=== PATIENT | female | born 1985 | race Caucasian/White ===

== ENCOUNTER → 2019-04-06 12:37 | Outpatient (BNVA) | payer OTHER, SELFPAY | PROVIDERS: Visit Provider Family Medicine | DX: J11.1 Influenza due to unidentified influenza virus with other respiratory manifestations (principal); Z20.828 Contact with and (suspected) exposure to other viral communicable diseases | CPT/HCPCS: 87804 ==

== ENCOUNTER → 2019-12-07 10:16 | Outpatient (BNVA) | payer OTHER, SELFPAY | PROVIDERS: Visit Provider Obstetrics & Gynecology | DX: O26.899 Other specified pregnancy related conditions, unspecified trimester; Z67.91 Unspecified blood type, Rh negative | CPT/HCPCS: 80307; 82950; 84315; 85025; 86803; 86850 ==

== ENCOUNTER → 2019-12-12 08:55 | Outpatient (BNVA) | payer OTHER, SELFPAY | PROVIDERS: Visit Provider Obstetrics & Gynecology | DX: R73.09 Other abnormal glucose (principal) | CPT/HCPCS: 82951; 82952 ==

== ENCOUNTER → 2020-01-31 10:01 | Outpatient (BNVA) | payer OTHER, SELFPAY | PROVIDERS: Visit Provider Obstetrics & Gynecology | DX: Z34.90 Encounter for supervision of normal pregnancy, unspecified, unspecified trimester (principal) | CPT/HCPCS: 84315; 87081 ==

== ENCOUNTER → 2020-02-21 08:57 | Outpatient (BNVA) | payer OTHER, SELFPAY | PROVIDERS: Visit Provider Obstetrics & Gynecology | DX: O26.899 Other specified pregnancy related conditions, unspecified trimester (principal); Z67.91 Unspecified blood type, Rh negative | CPT/HCPCS: 84315; 87635 ==

== ENCOUNTER 2020-03-04 11:30 | Inpatient (IN) | payer OTHER, SELFPAY ==
[2020-03-04] VITALS (58 sets, daily range): BP systolic 0–160; BP diastolic 0–103; PULSE 65–112; RESP 16; TEMP 36.8–37; O2SAT 97–99
--- NOTE | 2020-03-04 11:30 | ANES.PREANE2 ---
Pre-Anesthetic Assessment Pre-Anesthetic Assessment: Height/Weight: Height 1.6 m Pulse BP 82 129/78 03/04/20 11:17 03/04/20 11:17 Preop Diagnosis: IUP Proposed Procedure: labor epidural Familial anesthetic complications: denies Was Beta Kel taken within 24 hours: N/A Social: Social History: Tobacco (smokes 2 cigs per day) Exam: Pre-Anes Outpt Exam: alert, oriented x 3 and clear to auscultation bilaterally Airway: Submandibular: WNL Cervical ROM: WNL MP: 2 Pulmonary: Pulmonary: None reported CV/HEM: CV/HEM: None reported : : None reported Hepatic: Hepatic: None reported GI: GI: GERD Metabolic: Metabolic: None reported Musc/skel: Musc/skel: None reported Neuropsych: Neuropsych: None reported Anesthetic Plan: Anesthesia: Anesthesia Evaluation and Regional (specify below) PFSH Anesthesia PFSH: Medical History No pertinent past medical history Denies diabetes, asthma, hypertension, seizures, DVT/PE PCP: Primary care at the [facility] Surgical History No pertinent past surgical history Family History Grandmother Heart disease paternal Hyperlipidemia paternal Hypertension paternal Stroke paternal Thyroid condition paternal Father Hyperlipidemia Hypertension Denies family history of Colon cancer Ovarian cancer Diabetes Breast cancer Uterine cancer Social History Smoking and tobacco status: current every day smoker Alcohol intake: current Additional social history: - Tobacco use: Quit in 2018 Alcohol use: Socially prior to Drug use: Never Data Anesthesia Cardiac Studies: No Data to Display
[2020-03-04 12:00] LABS: Basophils % 0.1 %; Eosinophils % 0.2 %; Hematocrit 40.2 % (37.0-47.0); Hemoglobin 13.6 g/dL (11.5-15.3); Lymphocytes # 0.9 10^3/uL (0.8-4.8); Lymphocytes % 5.6 %; Mean Corpuscular HGB Conc 33.8 g/dL (30.0-36.0); Mean Corpuscular Hemoglobin 31.9 pg (28.0-34.0); Mean Corpuscular Volume 94.1 fL (81-99); Mean Platelet Volume 11.5 fL (7.4-10.4); Monocytes # 0.4 10^3/uL (0.2-0.9); Monocytes % 2.8 %; Neutrophils # 13.84 10^3/uL (1.8-7.7); Neutrophils % 90.8 %; Nucleated Red Blood Cells % 0 %; Platelet Count 252 10^3/cmm (130-400); Red Blood Count 4.27 10^6/uL (4.1-5.3); Red Cell Distribution Width 12.8 % (12.1-15.1); White Blood Count 15.2 10^3/uL (4.0-10.0)
[2020-03-04] MEDS: lactated ringers 1,000 ML 999 ML IV ×2 (12:00→13:00)
--- NOTE | 2020-03-04 13:15 | ANES.PROC ---
Anesthesia Procedures Procedure/Date: 03/04/20 Epidural: Time Out Performed: Yes Consents Signed: Procedure Consent Consent: requested by attending/covering physician Lumbar Level: L3-L4 Epidural position: sitting Epidural procedure: sterile prep of area, 1% lidocaine to numb the area (3 cc), 18 g needle (L3-L4 interspace ), neg for paresthesia, test dose given ( 3 cc), 0.2% Ropivacaine bolus ml (8 cc ), placed PCEA, no systemic response, sterile dressing applied, L.U.D. no apparent complications and 0.2% Ropiavacaine @ mls/hr (12 mls/hr 5 c bolus Q 10 min ) Additional Comments: MARIELY at 8 cm at the skin, catheter threaded to 14 cm. Patient states she is having decreased pain with contractions. VSS see OBYX system.
[2020-03-04] MEDS: oxytocin 30 UNIT/500 ML BAG IV (15:15)
[2020-03-04] MEDS: hyDROXYzine 25 mg Capsule 50 MG PO (17:33)
[2020-03-04] MEDS: dextrose 5%-lactated ringers 1,000 ML 125 ML IV (19:05)
[2020-03-04] MEDS: ondansetron 2 mg/ML SDV 2 mL 4 MG IVP (20:14)
--- NOTE | 2020-03-04 21:05 | P.PCNOB_ITS ---
Delivery Note: Date of delivery: March 04, 2020 Pre-delivery diagnoses: term Post-delivery diagnoses: term delivered Procedure: spontaneous vaginal delivery Op report anesthesia: Epidural Delivering Physician: Juan Luis Hendricks M.D. Estimated blood loss (mL): 500 Findings: male , Apgars 8 and 9, weight Pre-Delivery Course: Ms. Solorzano is a 34 year old, 2, Para 1-0-0-1, with an LMP of 05/24/2019 and an EDC of 02/28/2020 based on LMP and consistent with 11- week ultrasound, which places her at 40 5/7 weeks gestation who has been re ceiving care from [facility]. She has been experiencing painful uterine contractions for the past 4 hours. The contractions are occurring at 4 minute intervals with approximately 30 second duration. She continues to feel movement between the contractions. She denies vaginal bleeding or rupture of membranes. CC: Onset of labor at term. HPI: Received appropriate care. Daily vitamins since started care. labs have all been normal, including negative for HIV. She was found to be negative for Group B Strep from screening at 36 weeks. She has gained approximately 27 lbs throughout the . She denies a history of HTN during . Glucose tolerance screening for gestational diabetes was negative. Delivery: The patient was noted to be complete and pushing, so was placed in the dorsal lithotomy position, prepped and draped in the usual sterile fashion for a vaginal delivery. Pt. Noted to have epidural anesthesia. At 2053 the patient delivered a viable at 40+5 weeks a male weighing 3325 g with scores of 8 and 9 at one and five minutes, respectively. The vertex was delivered spontaneously over intact perineum. The patient was asked to push and the head delivered spontaneously in the MARQUIS position, over an intact perineum. A nuchal cord was checked and none noted. The anterior shoulder delivered easily and the posterior shoulder followed. The remainder of the was easily delivered and the oropharynx and nasopharynx was bulb suctioned. The infant was noted to have spontaneous cry and spontaneous movement of all four extremities. The cord was clamped x 2 and cut and noted to have 2 arteries and one vein. The infant was passed to the mother's abdomen where nursing personnel were in attendance. Cord blood was then obtained. The placenta delivered intact spontaneously and the uterus was explored. 20 units of Pitocin was placed in the IV bag to firm the uterus. Examination of the cervix and vaginal vault did not reveal any lacerations. A vaginal pack was then placed. Examination of the perineum showed no lacerations. The vaginal pack was then removed. The patient tolerated this procedure well, and recovered in L&D with her infant to the OB freier. All sponge and needle counts were correct. Post-Delivery Status: good and stable A&P Assessment and plan (1) Rh negative status during : Status: Acute Qualifiers: Trimester: third trimester Qualified Code(s): O26.893 - Other specified related conditions, third trimester; Z67.91 - Unspecified blood type, Rh negative (2) Term delivered: Status: Acute Coding Level of Care Code Acute Technical Delivery Manager for [facility] Manuela Medical Decision Making Moderate Complexity Diagnoses Rh negative status during O26.893; Z67.91 Trimester: third trimester Term delivered O80 Time Spent (min) 120
[2020-03-04] MEDS: HYDROcodone-acetaminophen 5-325 mg Tablet PO (23:09)
[2020-03-05] VITALS (10 sets, daily range): BP systolic 107–120; BP diastolic 61–74; PULSE 71–93; RESP 16–18; TEMP 36.6–36.9; O2SAT 96–98
[2020-03-05] MEDS: HYDROcodone-acetaminophen 5-325 mg Tablet PO ×3 (07:42→20:10)
[2020-03-05] MEDS: docusate sodium 100 mg Capsule PO (09:19)
[2020-03-05] MEDS: ibuprofen 800 mg tablet PO ×3 (09:19→22:00)
[2020-03-05] MEDS: prenatal vitamin Capsule 1 CAP PO (09:19)
[2020-03-05 11:25] LABS: Hematocrit 35.7 % (37.0-47.0); Hemoglobin 11.9 g/dL (11.5-15.3); Mean Corpuscular HGB Conc 33.3 g/dL (30.0-36.0); Mean Corpuscular Hemoglobin 32.2 pg (28.0-34.0); Mean Corpuscular Volume 96.5 fL (81-99); Mean Platelet Volume 11.8 fL (7.4-10.4); Platelet Count 219 10^3/cmm (130-400); Red Cell Distribution Width 12.9 % (12.1-15.1); White Blood Count 17.5 10^3/uL (4.0-10.0)
--- NOTE | 2020-03-05 13:39 | PC.RESP ---
Smoking Cessation information sent to patient.
--- NOTE | 2020-03-05 16:19 | P.DS_ITS ---
Discharge Providers FREIGHT SEPARATOR Date of Admission: 03/04/20 11:30 Date of Discharge: 03/05/20 Attending Provider at Admission: Juan Luis Hendricks MD Attending Provider at Discharge: Juan Luis Hendricks MD Diagnoses at Discharge Discharge Diagnosis (1) Rh negative status during : Status: Acute Qualifiers: Trimester: third trimester Qualified Code(s): O26.893 - Other specified related conditions, third trimester; Z67.91 - Unspecified blood type, Rh negative (2) Term delivered: Status: Acute Reason for Visit Reason for Visit: contractions Hospital Course Hospital Course Ms. Solorzano is a 34 year old, 2, Para 1-0-0-1, with an LMP of 05/24/2019 and an EDC of 02/28/2020 based on LMP and consistent with 11-week ultrasound, which places her at 40 5/7 weeks gestation who has been receiving care from [facility]. Came to labor and delivery for contractions. She was admitted in active labor. She progressed to have a spontaneous vaginal delivery without complication of a term male infant at 40+5 weeks, weighing 3325 g with scores of 8 and 9 at one and five minutes, respectively. observation was uneventful. Tolerating diet well. Ambulating without difficulty. She is afebrile and hemodynamically stable Information Peripartum Data: Infant Delivery Method: Vaginal Physical Exam Narrative: EXAM NARRATIVE: GA; alert and oriented x 3 HEENT: normal Breasts: engorged Nipples - skin intact Lungs; clear to auscultation Heart: regular rhythm, no murmurs. Abd: Appropriately tender. BS+. Uterine fundus below umbilicus. No Fundal Tenderness. Perineum: normal lochia. Extremities: no edema, no cyanosis, no tenderness. Urinary Catheter Management^: Rabago: Cath Placed During This Visit: yes, but has since been removed by the nurse Reason for Continuing Indwelling Catheter: Decision to DC Catheter Urinary Catheter Date of Insertion: 03/04/20 Urinary Catheter Time of Insertion: 13:30 Date Urinary Catheter Removed: 03/04/20 Time Urinary Catheter Discontinued: 19:30 Discharge Data Data Completed and Pending: Labs from last 24 hours 03/05/20 03/05/20 03/04/20 10:30 10:30 11:35 WBC 17.5 H RBC 3.70 L Hgb 11.9 Hct 35.7 L MCV 96.5 MCH 32.2 MCHC 33.3 RDW 12.9 Plt Count 219 MPV 11.8 H Blood Type O Negative Rho(D) Type Negative Antibody Screen Positive Antibody Identific ation Anti-D Screen Negative Vitals: Last Vital Signs Temp 98.2 F 03/05/20 15:16 Pulse 76 03/05/20 15:16 Resp 17 03/05/20 15:16 BP 112/63 03/05/20 15:16 Pulse Ox 98 03/05/20 06:55 Discharge Plan Discharge Patient Disposition: Home Condition: Stable Prescriptions: New acetaminophen 325 mg capsule 325 mg PO Q4H PRN (Reason: fever or pain) Qty: 60 RF: 0 ferrous sulfate 325 mg (65 mg iron) tablet 325 mg PO BID Qty: 60 RF: 0 ibuprofen 800 mg tablet 800 mg PO TID PRN (Reason: pain) Qty: 60 RF: 0 Continued prenat.vits,carlene,eqc-nlli-eggmo Tablet 1 tab PO DAILY RF: 0 calcium carbonate [Calcium 500] 500 mg calcium (1,250 mg) tablet 500 mg PO DAILY RF: 0 Discharge Orders: Discharge Order (Routine); Ordered 03/05/20 Ordered By: Juan Luis Hendricks Referrals: Juan Luis Hendricks MD [Physician] - 6 Weeks Discharge Diet: As Directed Discharge Activity: Increase activity as tolerated Patient Instructions: Your 's Appearance (DC), Your [place]'s Appearance (GEN), Vaginal Delivery (DC), Vaginal Delivery (GEN) Activity Restrictions/Additional Instructions: 1. Please call [facility] on next working day to make your visit 6 weeks. 2. Please stay home until you come back to the clinic on first post-operative check up. 3. Please follow instructions on your medications CAREFULLY. 4. If you have abdominal incision, do not cover it unless dressing is necessary because of drainage. OK to shower, but avoid bath. Leave steri-strips until they fall off. If they are still on one week after surgery, you may remove them. 5. If you had vaginal surgery, your doctor may instruct you to take SITZ bath. 6. Yellow, blood tinged odorous vaginal discharge is usually normal after hysterectomy or vaginal surgeries. 7. No sexual intercourse, tampons, or douches for 6 weeks or you are completely released from the post-operative care. 8. Avoid constipation by eating right and maybe using some Metamucil or Milk of Magnesia. 9. All prescription refills are given during the working hours. Please do no wait till it runs out. Call the clinic at [phone] before your medication runs out. The clinic will get in touch with your doctor to prescribe medications if necessary. 10. Please remain within 40 mile radius from our hospital because emergencies do happen now and then during the post-operative period. 11. If you have stairs at home, take one step at a time slowly and minimize the number of trips. It helps to stay in one floor for the next few days. No lifting except what you can lift by one hand until you are released from the post-operative care. 12. Driving is discouraged until you are well healed. It may be 3-4 weeks before you feel strong enough to drive. You should be able to turn and look through the rear window without pain and you should be able to push the brake pedal very hard without pain before you drive. No fast rules, but SAFETY should be your primary concern. DO NOT drive if you are on sedating medications such as narcotics. 13. Call the clinic (during working hours) to make urgent appointment or go to the Emergency room, if any of the following occurs: i. Vaginal bleeding becomes heavy, more than a period. ii. Incision becomes red and sore, or drains pus. iii. Your temperature is over 100.4 or you have chill. iv. IV site becomes red and swollen (a little ``knot?? is usually OK) v. Persistent nausea and vomiting vi. Persistent constipation or diarrhea vii. Rash or allergic reaction to medications. Discharge Attestations FREIGHT SEPARATOR Time Spent in Discharge Care*: greater than 30 min Coding Level of Care Code Acute Mini Lab Operator for [facility] Diagnoses Rh negative status during O26.893; Z67.91 Trimester: third trimester Term delivered O80
--- NOTE | 2020-03-05 23:17 | PC.NURSE ---
Discharge instructions given
== END 2020-03-05 22:30 | disposition home or self-care (01) | DRG 807 ==
LOC: OBGYN 21:01 → OPOB 03-05 07:59
PROVIDERS: Admitting Provider Obstetrics & Gynecology; Visit Provider Obstetrics & Gynecology
DX: O36.0930 Maternal care for other rhesus isoimmunization, third trimester, not applicable or unspecified (principal); Z37.0 Single live birth; Z3A.40 40 weeks gestation of pregnancy
CPT/HCPCS: 12345; 36415; 36430; 51702; 59409; 80500; 85025; 85027; 85460; 86850; 86870; 86900; 90384; 96375; 99211; J2405; J2795; J3010

== ENCOUNTER 2022-05-13 11:54 | Outpatient (CLI) | payer OTHER, SELFPAY ==
--- NOTE | 2022-05-13 12:03 | XR_ITS ---
WS: [id number] Exam: XR cervical spine 3V* [id number] Date/Time of Exam: 05/13/2022 12:10 PM Reason For Exam: neck pain with radicular symptoms No fracture or dislocation noted. Disc spaces are preserved. Posterior elements are intact. The odont oid is unremarkable. Minimal facet DJD. Normal paraspinal soft tissues. XR/XR cervical spine 3V* [id number] IMPRESSION: 1. Minimal facet DJD. 2. No fracture or malalignment.
== END 2022-05-13 11:55 | disposition home or self-care (01) ==
LOC: RAD 11:57
PROVIDERS: PCP Family Medicine; Visit Provider Family Medicine
DX: M54.12 Radiculopathy, cervical region (principal)
CPT/HCPCS: 72040; 80053; 84443; 85025

== ENCOUNTER 2022-07-01 15:18 | Outpatient (CLI) | payer OTHER, SELFPAY ==
--- NOTE | 2022-07-01 15:15 | MR_ITS ---
WS: [id number] MRI CERVICAL SPINE with and without contrast. HISTORY: chronic neck pain with radiculopathy, limited range of motion. COMPARISON: Cervical spine radiograph 05/13/2022. Technique: Multiplanar, multisequence pre and postcontrast imaging of the cervical spine. MultiHance 14 mL IV. Mild reversal of the normal cervical lordosis centered at C4-5. Mild asymmetric narrowing of the C4-5 disc space and desiccation. No fracture or marrow edema. Signal within the cervical cord is normal. Visualized posterior fossa is unremarkable. Craniocervical junction, C1 and C2 relationship, odontoid process and soft tissues are normal. C2-C3: Normal. C3-C4: Small foraminal osteophytes. There is a very tiny annular fissure centrally. No stenosis or pr otrusions. Very minimal encroachment and narrowing of the LEFT foramen. C4-C5: Osteophytic ridging with annular disc bulging. Annular disc bulging and a tiny central disc pr otrusion contacts the ventral cervical cord but does not displace it. Small disc osteophyte in the RI GHT foramen causing moderate stenosis. Mild central stenosis. C5-C6: Normal. C6-C7: Normal. C7-T1: Normal. Postcontrast images are negative for discitis or osteomyelitis. No enhancement or demyelinating plaqu es within the cervical cord. Visualized posterior fossa is also negative. MR/MR cervical spine wo/w [id number] IMPRESSION: 1. Degenerative disc disease with asymmetric narrowing at C4-5. 2. Disc bulging and osteophytic ridging with slight reversal of the normal cer vical lordosis centered at C4-5. Changes result in the disc contacting but not displacing the ventral cervical cord. Mild central and RIGHT foraminal stenosis . 3. Very minimal narrowing of the LEFT foramen at C3-4. 4. No enhancement in the cervical cord to suggest demyelination.
[2022-07-01] MEDS: gadobenate dimeglumine 20 mL vial IV (16:29)
== END 2022-07-01 15:19 | disposition home or self-care (01) ==
PROVIDERS: PCP Family Medicine; Visit Provider Family Medicine
DX: M54.12 Radiculopathy, cervical region (principal); M50.321 Other cervical disc degeneration at C4-C5 level
CPT/HCPCS: 72156; A9577

== ENCOUNTER 2022-08-26 10:54 | Outpatient (CLI) | payer OTHER, SELFPAY | END 2022-08-26 10:55 | disposition home or self-care (01) | PROVIDERS: PCP Family Medicine; Visit Provider Anesthesiology Pain Medicine | DX: M54.16 Radiculopathy, lumbar region (principal) | CPT/HCPCS: 72110 ==

== ENCOUNTER 2022-11-25 11:38 | Outpatient (CLI) | payer OTHER, SELFPAY ==
--- NOTE | 2022-11-25 11:51 | XRR_ITS ---
PROCEDURE INFORMATION: Exam: XR Right Knee Exam date and time: 11/25/2022 11:59 AM Age: 37 years old Clinical indication: Pain and injury or trauma; Sprain or strain; Patella or knee; Right; Injury details: Twisted knee/ankle when going into [employer]. Twisted and popped knee when running in field; Additional info: Acute right knee pain TECHNIQUE: Imaging protocol: Radiologic exam of the right knee. Views: 3 views. COMPARISON: No relevant prior studies available. FINDINGS: Bones/joints: Osseous structures are intact. No fracture or malalignment. Joint surfaces are preserved. Soft tissues: Unremarkable. XR/XR knee RT 3V* [id number] IMPRESSION: No acute bony abnormalities.
== END 2022-11-25 11:39 | disposition home or self-care (01) ==
PROVIDERS: PCP Family Medicine; Visit Provider Family Medicine
DX: M25.561 Pain in right knee (principal)
CPT/HCPCS: 73562